=== PATIENT | female | born 1945 | race Caucasian/White ===

== ENCOUNTER → 2016-04-11 | Outpatient (CLI) | payer MEDICARE ==
--- NOTE | 2016-04-14 09:21 | MM ---
Reason for exam: screening (asymptomatic). Last mammogram was performed 1 year and 1 month ago. History: Patient is postmenopausal. Benign right mammotome panel of the right breast, January 04, 2013. Took hormonal contraceptives for 1 year. Took estrogen for 3 years. Physical Findings: A clinical breast exam by your physician is recommended on an annual basis and results should be correlated with mammographic findings. MG 3D Screening Mammo W/Cad Bilateral CC and MLO view(s) were taken. Prior study comparison: February 28, 2015, bilateral MG screening mammo w CAD. January 25, 2014, bilateral MG screening mammo w CAD. The breast tissue is almost entirely fat. Benign calcifications. No significant changes when compared with prior studies. ASSESSMENT: Benign, BI-RAD 2 RECOMMENDATION: Routine screening mammogram of both breasts in 1 year.
== END | disposition home or self-care (01) ==
LOC: RADMAMWWP 12:46
PROVIDERS: ATTEND Surgery
DX: Z12.31 Encounter for screening mammogram for malignant neoplasm of breast (principal)
CPT/HCPCS: 77063; G0202

== ENCOUNTER → 2017-06-05 | Outpatient (CLI) | payer MEDICARE ==
--- NOTE | 2017-06-08 11:00 | MM ---
Reason for exam: screening (asymptomatic). Last mammogram was performed 1 year and 2 months ago. History: Patient is postmenopausal and history of other cancer. Benign right mammotome panel of the right breast, January 04, 2013. Took hormonal contraceptives for 1 year. Took estrogen for 3 years. Physical Findings: A clinical breast exam by your physician is recommended on an annual basis and results should be correlated with mammographic findings. MG 3D Screening Mammo W/Cad Bilateral CC and MLO view(s) were taken. Prior study comparison: April 11, 2016, bilateral MG 3d screening mammo w/cad. February 28, 2015, bilateral MG screening mammo w CAD. There are scattered fibroglandular densities. Finding: There are typically benign calcifications in both breasts. No suspicious abnormality. Right biopsy marker noted. ASSESSMENT: Benign, BI-RAD 2 RECOMMENDATION: Routine screening mammogram of both breasts in 1 year.
== END | disposition home or self-care (01) ==
LOC: RADMAMWWP 11:10
PROVIDERS: ATTEND Family Medicine
DX: Z12.31 Encounter for screening mammogram for malignant neoplasm of breast (principal)
CPT/HCPCS: 77063; 77067

== ENCOUNTER → 2018-06-30 | Outpatient (CLI) | payer MEDICARE ==
--- NOTE | 2018-07-02 08:25 | MM ---
Reason for exam: screening (asymptomatic). Last mammogram was performed 1 year and 1 month ago. History: Patient is postmenopausal and history of other cancer. Benign right mammotome panel of the right breast, January 04, 2013. Took hormonal contraceptives for 1 year. Took estrogen for 3 years. Physical Findings: A clinical breast exam by your physician is recommended on an annual basis and results should be correlated with mammographic findings. MG 3D Screening Mammo W/Cad Bilateral CC and MLO view(s) were taken. Prior study comparison: June 05, 2017, bilateral MG 3d screening mammo w/cad. April 11, 2016, bilateral MG 3d screening mammo w/cad. The breast tissue is almost entirely fat. No significant changes when compared with prior studies. ASSESSMENT: Negative, BI-RAD 1 RECOMMENDATION: Routine screening mammogram of both breasts in 1 year.
== END | disposition home or self-care (01) ==
LOC: RADMAMWWP 12:51
PROVIDERS: ATTEND Family Medicine
DX: Z12.31 Encounter for screening mammogram for malignant neoplasm of breast (principal)
CPT/HCPCS: 77063; 77067

== ENCOUNTER → 2019-01-27 | Outpatient (CLI) | payer MEDICARE ==
--- NOTE | 2019-01-27 14:29 | CT ---
EXAMINATION TYPE: CT abdomen pelvis wo con DATE OF EXAM: 01/27/2019 COMPARISON: 03/03/2013 HISTORY: 73-year-old female history of renal stones and hydronephrosis CT DLP: 1223.2 mGycm. Automated exposure control for dose reduction was used. TECHNIQUE: Contiguous axial scanning of the abdomen and pelvis without IV contrast. Coronal and sagit pamela reconstructions performed. FINDINGS: Heart upper limits of normal in size without pericardial effusion. Suggestion of mild emphysematous c hange in the visualized lower lungs with strandy atelectasis. Generalized breathing motion artifact degrading the exam. Lack of contrast further limits assessment. Liver borderline enlarged at 17.7 cm. There may be mild fatty infiltration. Cholecystectomy clips. Adrenal glands, spleen, and pancreas show no gross abnormality by noncontrast CT. Bilateral parapelvic cysts are redemonstrated measuring up to 3.2 cm on the left. Lack of IV contrast limits further assessment. No dilated ureter is seen. No nephrolithiasis. Mild central hiro mesentery and some borderline sized mesenteric lymph nodes measuring up to 8 mm ar e stable back to 2012 suggesting chronic postinflammatory etiology. No dilated small bowel, free fluid, or free air. Mild to moderate stool. Mild diverticulosis of the sigmoid colon. No pericolonic inflammatory change. Bladder partially distended. Uterus appears absent. Stable slight thickening along the right lateral margin of the vaginal cuff as compared to 2013 suggesting a benign etiology. No abnormal fluid collec tion the pelvis or pelvic lymphadenopathy. Neither ovary is clearly visualized. Bones: Osteitis pubis. Mild degenerative change of the hips. Moderately advanced degenerative disc di sease throughout the visualized spine along with hypertrophic facet arthropathy. IMPRESSION: 1. Redemonstrated multiple bilateral renal parapelvic cysts measuring up to 3.2 cm. 2. No nephrolithiasis. Further assessment of the kidneys and collecting systems is limited due to lac k of contrast. No dilated ureter is seen. 3. Borderline hepatomegaly at 17.7 cm. Stable mild central hiro mesentery and a few scattered border line sized mesenteric lymph nodes suggesting a chronic postinflammatory etiology. 4. Very mild sigmoid diverticulosis.
== END | disposition home or self-care (01) ==
LOC: RADCTMAIN 12:35
PROVIDERS: ATTEND Urology
DX: N28.1 Cyst of kidney, acquired (principal); R16.0 Hepatomegaly, not elsewhere classified; K57.30 Diverticulosis of large intestine without perforation or abscess without bleeding
CPT/HCPCS: 74176

== ENCOUNTER → 2019-12-23 | Day surgery (SDC) | payer MEDICARE ==
[2019-12-01 10:23] VITALS: BMI 36.0
[~2019-12-23] MED LIST: LACTATED RINGERS 1,000 ML IV SCH; LIDOCAINE 1% (10MG/ML) FOR IV START INTRADERMA ONE; PROPOFOL 10 MG/ML 20 ML VIAL IV ONE
[2019-12-23 10:33] VITALS: TEMP 97
[2019-12-23 11:03] VITALS: RESP 16
[2019-12-23 11:23] VITALS: BP 110/69; PULSE 59
--- NOTE | 2019-12-23 11:28 | P.PCN ---
Date of Procedure: 12/23/19 Procedure(s) Performed: BRIEF HISTORY: Patient is a 74-year-old pleasant white female scheduled for an elective colonoscopy as a part of screening for colorectal neoplasia. Her mother was diagnosed with colon cancer at age 75. PROCEDURE PERFORMED: Colonoscopy. PREOPERATIVE DIAGNOSIS: Screening for colon cancer/family history of colon cancer. IV sedation per Anesthesia. PROCEDURE: After informed consent was obtained, the patient, was brought into the endoscopy unit. IV sedation was administered by Anesthesia under continuous monitoring. Digital rectal examination was normal. Initially the Olympus CF-160 flexible video colonoscope was then inserted in the rectum, gradually advanced into the cecum without any difficulty. Careful examination was performed as the scope was gradually being withdrawn. Ileocecal valve and the appendiceal orifice were visualized and appeared normal. Prep was excellent. Mucosa of the cecum, ascending colon, transverse colon, descending colon, sigmoid colon, and rectum appeared normal. Scattered sigmoidal diverticulosis Retroflexion was performed in the rectum and no lesions were seen. The patient tolerated the procedure well. IMPRESSION: Normal-appearing colon from rectum to cecum with no evidence of colorectal neoplasia Scattered sigmoid diverticulosis seen. RECOMMENDATIONS: Findings of this examination were discussed with the patient as well as a family. She was advised to have a repeat screening colonoscopy in 5 years based the family history of colon cancer..
== END ==
LOC: ORWHC2ENDO 09:33
PROVIDERS: ATTEND Internal Medicine
DX: Z12.11 Encounter for screening for malignant neoplasm of colon (principal); K57.30 Diverticulosis of large intestine without perforation or abscess without bleeding; E78.5 Hyperlipidemia, unspecified; I49.9 Cardiac arrhythmia, unspecified; Z96.659 Presence of unspecified artificial knee joint; Z88.0 Allergy status to penicillin; Z91.012 Allergy to eggs; Z79.899 Other long term (current) drug therapy; Z80.0 Family history of malignant neoplasm of digestive organs
CPT/HCPCS: J2704; G0105

== ENCOUNTER → 2020-01-17 | Outpatient (CLI) | payer MEDICARE ==
--- NOTE | 2020-01-18 13:25 | MM ---
Reason for exam: screening (asymptomatic). Last mammogram was performed 1 year and 7 months ago. History: Patient is postmenopausal and history of other cancer. Benign right mammotome panel of the right breast, January 04, 2013. Took hormonal contraceptives for 1 year. Took estrogen for 3 years. Physical Findings: A clinical breast exam by your physician is recommended on an annual basis and results should be correlated with mammographic findings. MG 3D Screening Mammo W/Cad Bilateral CC and MLO view(s) were taken. Prior study comparison: June 30, 2018, bilateral MG 3d screening mammo w/cad. June 05, 2017, bilateral MG 3d screening mammo w/cad. The breast tissue is almost entirely fat. Previous mammotome biopsy in the right breast. No significant changes when compared with prior studies. ASSESSMENT: Negative, BI-RAD 1 RECOMMENDATION: Routine screening mammogram of both breasts in 1 year.
== END | disposition home or self-care (01) ==
LOC: RADMAMWWP 16:10
PROVIDERS: ATTEND Family Medicine
DX: Z12.31 Encounter for screening mammogram for malignant neoplasm of breast (principal)
CPT/HCPCS: 77063; 77067

== ENCOUNTER → 2021-06-18 | Outpatient (CLI) | payer MEDICARE ==
--- NOTE | 2021-06-20 10:53 | MM ---
Reason for exam: screening (asymptomatic). Last mammogram was performed 1 year and 5 months ago. History: Patient is postmenopausal and history of other cancer. Benign right mammotome panel of the right breast, January 04, 2013. Took hormonal contraceptives for 1 year. Took estrogen for 3 years. Physical Findings: A clinical breast exam by your physician is recommended on an annual basis and results should be correlated with mammographic findings. MG 3D Screening Mammo W/Cad Bilateral CC and MLO view(s) were taken. Prior study comparison: January 17, 2020, bilateral MG 3d screening mammo w/cad. June 30, 2018, bilateral MG 3d screening mammo w/cad. There are scattered fibroglandular densities. No significant changes when compared with prior studies. ASSESSMENT: Benign, BI-RAD 2 RECOMMENDATION: Routine screening mammogram of both breasts in 1 year.
== END | disposition home or self-care (01) ==
LOC: RADMAMWWP 12:54
PROVIDERS: ATTEND Family Medicine
DX: Z12.31 Encounter for screening mammogram for malignant neoplasm of breast (principal)
CPT/HCPCS: 77063; 77067

== ENCOUNTER → 2021-11-29 | Outpatient (CLI) | payer MEDICARE ==
--- NOTE | 2021-11-29 15:24 | US ---
EXAMINATION TYPE: US venous doppler duplex LE BI DATE OF EXAM: 11/29/2021 3:09 PM COMPARISON: NONE CLINICAL HISTORY: R79.1 ABN COAGULATION PROFILE. Abnormal Ddimer. Covid x 2 weeks ago. No swelling. Patient states left lateral calf warmth. SIDE PERFORMED: Bilateral TECHNIQUE: The lower extremity deep venous system is examined utilizing real time linear array sonog disha with graded compression, doppler sonography and color-flow sonography. Additionally the left pl eural catheter in the patient's region of warmth was evaluated. VESSELS IMAGED: Common Femoral Vein Deep Femoral Vein Greater Saphenous Vein * Femoral Vein Popliteal Vein Small Saphenous Vein * Proximal Calf Veins (* superficial vessels) Grayscale, color doppler, spectral doppler imaging performed of the deep veins of the lower extremiti es. There is normal flow, compressibility, vascular waveforms. Right Leg: Negative for DVT Left Leg: Negative for DVT. Area of concern scanned- No abnormality seen. IMPRESSION: No ultrasound evidence of deep venous thrombosis of the bilateral lower extremities.
== END | disposition home or self-care (01) ==
LOC: RADUSWWP 14:40
PROVIDERS: ATTEND Family Medicine
DX: R79.1 Abnormal coagulation profile (principal)
CPT/HCPCS: 93970

== ENCOUNTER → 2021-12-16 | Outpatient (CLI) | payer MEDICARE | END | disposition home or self-care (01) | LOC: LABPAT 15:29 | PROVIDERS: ATTEND Orthopaedic Surgery | DX: Z22.322 Carrier or suspected carrier of Methicillin resistant Staphylococcus aureus (principal); M19.011 Primary osteoarthritis, right shoulder | CPT/HCPCS: 87070 ==

== ENCOUNTER 2021-12-24 05:38 | Inpatient (IN) | payer MEDICARE ==
--- NOTE | 2021-12-23 09:06 | P.HPOR ---
History of Present Illness H&P Date: 12/23/21 Chief Complaint: Right shoulder pain The patient's a 76-year-old retired [id number] female who presents with progressive right shoulder pain for the past several years worsening recently. She's having pain with any attempted overhead use and at night. She can't take anti-inflammatories because of renal disease. Review of Systems As per HPI Past Medical History Past Medical History: Osteoarthritis (OA) Additional Past Medical History / Comment(s): states irregular heart beat, occasional IBS, skin cancer, states scab on leg from scrape., and recent skin spot on her back that was removed with scab in place., severe tinnitus. History of renal disease. History of Any Multi-Drug Resistant Organisms: None Reported Past Surgical History: Cholecystectomy, Hysterectomy, Tonsillectomy Additional Past Surgical History / Comment(s): Total knee arthroplasty Past Anesthesia/Blood Transfusion Reactions: No Reported Reaction Past Psychological History: No Psychological Hx Reported Smoking Status: Never smoker Past Alcohol Use History: Rare Past Drug Use History: None Reported - Past Family History Mother Family Medical History: Cancer Additional Family Medical History / Comment(s): colon cancer Medications and Allergies Home Medications Medication Instructions Recorded Confirmed Type Aspirin 81 mg PO DAILY 09/01/14 12/01/19 History Cholecalciferol [Vitamin D3] 1,000 unit PO DAILY@1200 09/01/14 12/01/19 History Atorvastatin [Lipitor] 10 mg PO HS 12/01/19 12/01/19 History Escitalopram [Lexapro] 10 mg PO DAILY 12/01/19 12/01/19 History Meclizine [Antivert] 25 mg PO BID 12/01/19 12/01/19 History Metoprolol Tartrate [Lopressor] 25 mg PO DAILY 12/01/19 12/01/19 History Ubidecarenone [Co Q-10] 100 mg PO DAILY 12/01/19 12/01/19 History Allergies Allergy/AdvReac Type Severity Reaction Status Date / Time Penicillins Allergy Rash/Hives Verified 12/20/19 15:56 egg AdvReac Unknown Diarrhea, Verified 12/20/19 15:56 Abd Pain Physical Examination - Shoulder right Appearance: swelling Tenderness with palpation: anterior Pain: with forward flexion ROM: forward flexion: 100 degrees ROM: internal rotation: lower lumbar ROM: external rotation: 40 degrees Strength: abduction: 4/5 Strength: extension: 5/5 Tests: internal impingement tests: positive Results The patient is a well-developed well-nourished female proximally 5 foot 7, 230 pounds of endomorphic habitus. HEENT exam is nonfocal, neck is supple. On examination the right shoulder she is tender about the anterior glenohumeral joint. She has moderate crepitus. Impingement test, Neer test, and speed tests are positive. Her distal neurovascular appears intact in the right upper extremity. - Diagnostic results Shoulder x-ray: image reviewed (3 views of the right shoulder obtaining the office show severe glenohumeral joint space narrowing with cystic changes inv olving the greater tuberosity.) Assessment and Plan Assessment: Right severe glenohumeral joint osteoarthrosis/possible rotator cuff tear History of renal disease Plan: I talked to the patient with regarding her condition along with treatment options. At this point she is quite limited because of pain despite previous conservative measures. After thorough discussion she opted to proceed with surgery. We'll plan to proceed with right total shoulder arthroplasty versus a reverse total shoulder arthroplasty depending on the integrity of her rotator cuff. Risks and benefits were discussed at length in layman's terms. Time with Patient: Less than 30
[2021-12-23 09:19] VITALS: BMI 39.1
[~2021-12-24 05:38] MED LIST changes: +ACETAMINOPHEN TAB 500 MG TAB PO PRN; -LACTATED RINGERS 1,000 ML IV SCH; -LIDOCAINE 1% (10MG/ML) FOR IV START INTRADERMA ONE; +MELOXICAM 7.5 MG TAB PO PRN; -PROPOFOL 10 MG/ML 20 ML VIAL IV ONE; +TRANEXAMIC ACID IN NACL,ISO-OS 1,000 MG in SALINE 1 100ML.BAG IVPB PRN
[2021-12-24] MEDS ORDERED: DEXAMETHASONE SOD PHOSPHATE 4 MG/ML 1 ML VIAL IV ONE (05:41)
[2021-12-24] MEDS ORDERED: ONDANSETRON 4 MG/2 ML VIAL IVP ONE (05:41)
[2021-12-24] MEDS: LACTATED RINGERS 1,000 ML IV SCH (06:30)
[2021-12-24] MEDS ORDERED: MIDAZOLAM 2 MG/2 ML VIAL IVP ONE (06:35)
--- NOTE | 2021-12-24 06:50 | P.ANPRN ---
Procedure Note - Anesthesia - Nerve Block Performed Right Interscalene Single Time Out Performed: Yes ([id number]) Date of Procedure: 12/24/21 Procedure Start Time: 06:40 Procedure Stop Time: 06:45 Location of Patient: PreOp Indication: Acute Post-Operative Pain, Requested by Surgeon Sedation Type: Sedate with meaningful contact maintained Preparation: Sterile Prep, Sterile Dressing Position: Sitting Catheter: None Needle Types: Pajunk Needle Gauge: Other (see comment) (22G-50 mm) Ultrasound used to visualize needle placement: Yes Ultrasound used to observe medication spread: Yes Injectate: 0.5% Ropivacaine (see comment for volume) (20 ml of 0.5% Ropivacaine mixed with 4 mg of dexamethasone) Blood Aspirated: No Pain Paresthesia on Injection Noted: No Resistance on Injection: Normal Image Stored and Saved: Yes Events: Uneventful and Well Tolerated
[2021-12-24] MEDS ORDERED: ePHEDrine 50 MG/ML 1 ML VIAL ONE (06:55)
[2021-12-24] MEDS ORDERED: PROPOFOL 10 MG/ML 20 ML VIAL IV ONE (06:55)
[2021-12-24] MEDS ORDERED: GLYCOPYRROLATE 0.2 MG/ML 2 ML VIAL ONE (06:55)
[2021-12-24] MEDS ORDERED: diphenhydrAMINE 50 MG/ML 1 ML VIAL ONE (06:55)
[2021-12-24] MEDS ORDERED: NEOSTIGMINE 1 MG/ML 10 ML VIAL ONE (06:55)
[2021-12-24] MEDS ORDERED: ROCURONIUM 10 MG/ML (5 ML VIAL) IV ONE (06:55)
[2021-12-24] MEDS ORDERED: DEXAMETHASONE SOD PHOSPHATE 4 MG/ML 1 ML VIAL ONE (06:55)
[2021-12-24] MEDS ORDERED: fentaNYL (PF) 50 MCG/ML 2 ML AMP ONE (06:55)
[2021-12-24] MEDS ORDERED: LIDOCAINE 2% INJ 20 MG/ML (2 ML VIAL) ONE (06:55)
[2021-12-24] MEDS ORDERED: SUCCINYLCHOLINE CHLORIDE 200 MG/10 ML VIAL IV ONE (06:55)
[2021-12-24] MEDS ORDERED: TRANEXAMIC ACID IN NACL,ISO-OS 1,000 MG/100 ML BAG ONE (06:55)
[2021-12-24] MEDS ORDERED: ROPIVACAINE 5 MG/ML 30 ML VIAL ONE (06:55)
[2021-12-24] MEDS ORDERED: HYDROmorphone 0.5 MG/0.5 ML SYRINGE IVP PRN ×2 (07:00→09:00)
[2021-12-24] MEDS ORDERED: ONDANSETRON 4 MG/2 ML VIAL IVP PRN (09:00)
[2021-12-24] MEDS ORDERED: HYDROcodone/APAP 7.5-325MG 1 EACH TAB PO PRN (09:03)
--- NOTE | 2021-12-24 09:21 | P.OP ---
Date of Procedure: 12/24/21 Preoperative Diagnosis: Severe right glenohumeral joint osteoarthrosis Postoperative Diagnosis: Same Procedure(s) Performed: Right total shoulder arthroplasty Implants: [employer] size 12 humeral body, size 10 humeral stem, 44 mm cemented peg glenoid component, 44 x 21 eccentric humeral head. Anesthesia: [facility] Surgeon: Ankur Calle [employer] Machinist #1: Steven Tabor Estimated Blood Loss (ml): 200 Pathology: other (Humeral head) Condition: stable Disposition: PACU Indications for Procedure: The patient's a 76-year-old female who presents with progressive right shoulder pain secondary to osteoarthrosis despite conservative measures. A discussion of the risks and benefits of operative intervention versus continued conservative measures was made with patient. She opted to proceed with surgery. Operative risks to include infection, neurovascular injury, fracture, instability, possible component loosening/failure need for subscap procedures was discussed. Informed consent was obtained. Operative Findings: As below Description of Procedure: The patient was brought to the operating room, and after induction of general anesthesia was placed in the beachchair position. The bony prominences were appropriately padded. The right upper extremity was prepped and draped in normal fashion. A deltopectoral incision was then made lateral to the coracoid process extending approximately 12 cm. The skin was incised sharply. Subcutaneous tissues were divided bluntly. Electrocautery was used for hemostasis. The deltopectoral interval was identified and the cephalic vein gently retracted laterally with the deltoid. Subdeltoid adhesions were bluntly dissected. A self-retaining retractor was placed. The clavipectoral fascia was opened and the conjoined tendon gently retracted medially. The upper one third of the pectoralis major was released to help facilitate exposure. The biceps was identified and the sheath was opened. The rotator interval was opened. The biceps was tenotomized and allowed to retract distally. A subscapularis peeled was performed. The humeral head was then exposed releasing the capsule off the humeral neck. The shoulder was gently dislocated. A starting hole was made in the head in line with the humeral shaft. The shaft was reamed by hand up to 10 mm. There is good distal chatter. The cutting guide was placed planning on 8 cut flush with the rotator cuff insertion and 30 of retroversion. The cutting block was pinned in place. The humeral head cut was then made. This measured most appropriately at 44 x 21 mm. Residual inferior osteophytes were carefully removed flush with the lower sioux cortical bone. A posterior glenoid retractor was placed. The glenoid was then exposed releasing the labrum from the 12 to 6 o'clock position. Residual labral tissue was removed. The glenoid sized most appropriate 44 mm. A guidewire was then inserted planning on the appropriate version. The glenoid was reamed down to a bleeding bony surface. The central pedicle was drilled. The alignment guide was placed in the peripheral peg holes drilled. The trial size 44 mm glenoid was placed and was fully seated. There was good anterior to posterior and inferior to superior fit. The trial component was removed. Pulsatile lavage was utilized. The bony surface was dried. The peripheral peg holes were then pressurized with cement utilizing a syringe. Excess cement was removed. A central peg glenoid was then placed and was fully seated. This was gently impacted. This was held in place until the c ement had sufficiently hardened. Attention was then paid again towards preparing the proximal humerus. The appropriate broach with a size 12 body was placed in 30 of retroversion and was fully seated. An eccentric 44 x 21 mm humeral head was placed. The shoulder was gently reduced. It was taken through a range of motion. It was felt to be stable in flexion and extension with internal and external rotation. I felt there was adequate hindu of soft tissue tension. The shoulder was gently dislocated. The trial components were then removed. A #2 Ethibond was placed laterally for reattachment of the lesser tuberosity. The humeral stem was inserted in 30 of retroversion and was fully seated. There was good rotational stability. The eccentric 44 x 21 mm humeral head was gently impacted. The shoulder was then gently reduced and taken through range of motion and was felt to be stable. Pulsatile lavage was utilized. The subscapularis was reattached utilizing #2 Ethibond suture. The rotator interval was closed with #2 Ethibond suture. She had minimal drainage at this point therefore a deep drain was not placed. The deltopectoral interval was closed with interrupted 2-0 Vicryl sutures. The subcu tissues were reapproximated with interrupted 2-0 Vicryl sutures. The skin was reprepped with 3-0 subcuticular Prolene suture. Steri-Strips were applied. A sterile dressing was applied in addition to a sling. The patient was then awoken from general anesthesia and transferred to recovery room in good condition. Blood loss was estimated at 200 mL. No complications were incurred. Sponge and needle counts were correct at the end the case. Pedro HARRIS assisted during the major components the case to include positioning, exposure, resection, implantation, and closure.
--- NOTE | 2021-12-24 10:38 | XR ---
EXAMINATION TYPE: XR shoulder limited RT DATE OF EXAM: 12/24/2021 9:43 AM INDICATION: Patient age:Female; 76 years old; Reason for study: s/p right total shoulder arthroplasty; COMPARISON: Shoulder radiograph 10/21/2021 TECHNIQUE: The right shoulder was examined in AP, internally rotated and scapular Y projections. . FINDINGS: RIGHT shoulder arthroplasty changes with hardware in appropriate position. No evidence of fracture. S ubcutaneous and intra-articular lucencies consistent with recent surgery. This is first suggested melissa ssly unremarkable. Mild multilevel disc degeneration changes throughout the spine. Hypertrophy of the acromioclavicular joint. IMPRESSION: 1. Post right shoulder arthroplasty changes with hardware in place and intact. No evidence fracture. 2. Mild right acromioclavicular joint osteoarthritis.
[2021-12-24 12:57] VITALS: RESP 18
[2021-12-24 13:14] LABS: Basophils % (A) 0 %; Eosinophils % (A) 0 %; HGB 13.5 gm/dL (11.4-16.0); Lymphocytes # (A) 0.6 k/uL (1.0-4.8); Lymphocytes % (A) 4 %; MCH 30.4 pg (25.0-35.0); MCHC 33.8 g/dL (31.0-37.0); MCV 89.9 fL (80.0-100.0); Mean Platelet Volume 7.9; Monocytes # (A) 0.5 k/uL (0-1.0); Monocytes % (A) 3 %; Neutrophils # (A) 13.9 k/uL (1.3-7.7); Neutrophils % (A) 93 %; Platelet Count 176 k/uL (150-450); RBC 4.45 m/uL (3.80-5.40); RDW 12.8 % (11.5-15.5)
[2021-12-24] MEDS ORDERED: ALPRAZolam 0.25 MG TAB PO PRN (17:08)
[2021-12-24] MEDS: HYDROcodone/APAP 5-325MG 1 EACH TAB PO PRN (18:12)
--- NOTE | 2021-12-24 20:15 | P.CONS ---
History of Present Illness - Reason for Consult Consult date: 12/24/21 Medical management Requesting physician: Ankur Calle - Chief Complaint Right shoulder surgery - History of Present Illness This is a very pleasant 76-year-old patient who follows with Dr. Dr. Carrion. Chronic stable medical conditions include prostatitis, CK D stage III, IBS, GERD, chronic tinnitus. Patient underwent total arthroplasty of the right shoulder. Postprocedure hand is numb no nausea vomiting. No chest pain or shortness breath. Patient's son and daughter the bedside. Sitting up in a chair. Patient has long-standing tinnitus Review of systems: GEN.: None EYES: None HEENT: Chronic tinnitus NECK: None RESPIRATORY: None CARDIOVASCULAR: None GASTROINTESTINAL: [GERD GENITOURINARY: None MUSCULOSKELETAL: Joint pains LYMPHATICS: None HEMATOLOGICAL: None PSYCHIATRY: None NEUROLOGICAL: None Past medical history to include: Osteoarthritis, CK D stage III, COVID November 2021, IBS, severe tinnitus, Social history: Patient became a bit ON June 2021. No smoking. Alcohol rarely. Physical examination: VITAL SIGNS: 97.5, 70, 18, 131/75, 94% on room air GENERAL: BMI 39.7, sitting up in a chair recliner awake comfortable. EYES: Pupils equal. Conjunctiva normal. HEENT: External appearance of nose and ears normal, oral cavity grossly normal. NECK: JVD not raised; masses not palpable. HEART: First and second heart sounds are normal; no edema. LUNGS: Respiratory rate normal; clear to auscultation. ABDOMEN: Soft, nontender, liver spleen not palpable, no masses palpable. PSYCH: Alert and oriented x3; mood and affect normal. MUSCULOSKELETAL:No Clubbing/cyanosis;muscles-grossly intact. Evidence of OA. NEUROLOGICAL: Cranial nerves grossly intact; no facial asymmetry, power and sensation grossly intact. LYMPHATICS: No lymph nodes palpable in the axilla and neck INVESTIGATIONS, reviewed in the clinical context: White count 15 hemoglobin 13.5 platelets 176 Assessment plan: -Right total shoulder arthroplasty Pain control -Primary osteoarthritis Pain control as needed -CK D stage III possibly nephrosclerosis Current labs not available. To follow-up outpatient. -Chronic tinnitus Told the patient to follow-up with ENT -GERD Prilosec -Essential hypertension Lopressor -Anxiety depression Lexapro, Xanax when necessary Resume home medications. MARRY stockings. Pain control. Care was discussed with the patient family the bedside. Questions answered. Thank you Dr. Calle Past Medical History Past Medical History: Osteoarthritis (OA), Renal Disease Additional Past Medical History / Comment(s): had covid infection 11-15-21 w/ elevated d dimer-followed with Dr Main,states hx irregular heart beat, occasional IBS, skin precancer, severe tinnitus. Stg 3 renal disease. History of Any Multi-Drug Resistant Organisms: None Reported Past Surgical History: Breast Surgery, Cholecystectomy, Hysterectomy, Joint Replacement, Tonsillectomy Additional Past Surgical History / Comment(s): Total rt knee arthroplasty,breast bx Past Anesthesia/Blood Transfusion Reactions: No Reported Reaction Additional Past Anesthesia/Blood Transfusion Reaction / Comm: no hx blood transfusion Smoking Status: Never smoker - Past Family History Mother Family Medical History: Cancer Additional Family Medical History / Comment(s): colon cancer Medications and Allergies Home Medications Medication Instructions Recorded Confirmed Type Aspirin 81 mg PO HS 09/01/14 12/24/21 History Cholecalciferol [Vitamin D3] 25 mcg PO DAILY 09/01/14 12/24/21 History Escitalopram [Lexapro] 10 mg PO HS 12/01/19 12/24/21 History Meclizine [Antivert] 25 mg PO BID 12/01/19 12/24/21 History Metoprolol Tartrate [Lopressor] 25 mg PO HS 12/01/19 12/24/21 History ALPRAZolam [Xanax] 0.0625 mg PO HS PRN 12/23/21 12/24/21 History Ascorbic Acid [Vitamin C] 500 mg PO DAILY 12/23/21 12/24/21 History Omeprazole [PriLOSEC] 20 mg PO QAM 12/23/21 12/24/21 History Zinc Citrate [Zinc] 30 mg PO DAILY 12/23/21 12/24/21 History Allergies Allergy/AdvReac Type Severity Reaction Status Date / Time Penicillins Allergy Rash/Hives-not Verified 12/24/21 06:14 sure if it was penicillin egg AdvReac Unknown Diarrhea, Verified 12/24/21 06:14 Abd Pain Physical Exam Vitals: Vital Signs Temp Pulse Pulse Resp BP Pulse Ox 12/24/21 12:56 97.5 F L 70 18 131/75 94 L 12/24/21 12:32 67 16 116/59 98 12/24/21 12:15 58 L 16 114/58 98 12/24/21 12:01 57 L 16 120/58 98 12/24/21 11:31 58 L 16 122/61 98 12/24/21 11:15 57 L 16 122/60 98 12/24/21 11:00 56 L 16 120/57 98 12/24/21 10:45 56 L 16 119/56 98 12/24/21 10:30 56 L 16 122/60 98 12/24/21 10:17 56 L 16 137/61 98 12/24/21 10:00 58 L 16 133/58 98 12/24/21 09:46 56 L 16 133/65 98 12/24/21 09:30 59 L 16 145/65 98 12/24/21 09:18 97 F L 57 L 16 162/72 98 12/24/21 06:50 48 L 16 132/77 95 12/24/21 06:12 97.7 F 53 L 18 142/65 96 Intake and Output 12/24/21 12/24/21 12/24/21 06:59 14:59 22:59 Intake Total 300 50 Output Total 200 Balance 300 -150 Intake: IV 300 50 Output: Estimated Blood Loss 200 Other: Weight 115 kg Results CBC & Chem 7: 12/24/21 12:53 Labs: Abnormal Lab Results - Last 24 Hours (Table) 12/24/21 Range/Units 12:53 WBC 15.0 H (3.8-10.6) k/uL Neutrophils # 13.9 H (1.3-7.7) k/uL Lymphocytes # 0.6 L (1.0-4.8) k/uL
[2021-12-24] MEDS ORDERED: ESCITALOPRAM 10 MG TAB PO SCH (21:00)
[2021-12-24] MEDS ORDERED: METOPROLOL TARTRATE 25 MG TAB PO SCH (21:00)
[2021-12-25] MEDS ORDERED: PANTOPRAZOLE 40 MG TABLET PO SCH (07:30)
[2021-12-25] MEDS: LACTATED RINGERS 1,000 ML IV SCH (07:47)
[2021-12-25] MEDS: HYDROcodone/APAP 5-325MG 1 EACH TAB PO PRN (08:00)
[2021-12-25] MEDS ORDERED: CHOLECALCIFEROL 25 MCG (1000 IU) TABLET PO SCH (09:00)
[2021-12-25] MEDS ORDERED: ASPIRIN 325 MG TAB PO SCH (09:00)
[2021-12-25] MEDS ORDERED: ASCORBIC ACID 500 MG TAB PO SCH (09:00)
--- NOTE | 2021-12-25 11:04 | P.PN ---
Subjective Progress Note Date: 12/25/21 Principal diagnosis: Severe right glenohumeral joint osteoarthrosis Patient was seen at bedside this morning sitting up in chair resting comfortably with sling to right upper extremity. Dressing is present on right shoulder at this time patient is currently icing shoulder. Patient says she has urinated since surgery yesterday. Patient says she has been up walking around the room with sling to right upper extremity. Patient says she is looking forward to going home. Patient denies chest pain, fever, shortness of breath, nausea, vomiting, change in vision, loss of bowel/bladder control. Objective - Vital Signs Vital signs: Vital Signs Temp 98.2 F 12/25/21 02:05 Pulse 53 L 12/25/21 02:05 Resp 18 12/25/21 08:30 BP 105/62 12/25/21 02:05 Pulse Ox 94 L 12/25/21 02:05 FiO2 Intake & Output 12/24/21 12/25/21 12/25/21 18:59 06:59 18:59 Intake Total 50 400 200 Output Total 200 Balance -150 400 200 Intake: IV 50 Intake, IV Titration 100 Amount ceFAZolin 2 gm In Sodium 100 Chloride 0.9% 50 ml @ 100 mls/hr IVPB Q8HR [facility] Rx# :[id number] Oral 300 200 Output: Estimated Blood Loss 200 Other: Voiding Method Toilet Toilet # Voids 2 - Exam Right shoulder: Incision is clean, dry, and intact. Swelling present throughout right upper extremity. The bulky dressing is in good condition. There is minimal soft tissue swelling and ecchymosis surrounding the medial and lateral aspects of the incision. Calf is soft, no tenderness with palpation. Plantar flexion, dorsiflexion, EHL, FHL are intact. Sensory exam to light touch throughout the extremity is intact, dorsal pedis pulses 2+. Patient does have good range of motion and right wrist flexion/extension and and digits. Patient does have some numbness and tingling down the right upper extremity. - Labs CBC & Chem 7: 12/24/21 12:53 Labs: Abnormal Lab Results - Last 24 Hours (Table) 12/24/21 Range/Units 12:53 WBC 15.0 H (3.8-10.6) k/uL Neutrophils # 13.9 H (1.3-7.7) k/uL Lymphocytes # 0.6 L (1.0-4.8) k/uL Assessment and Plan Assessment: 1. Severe right glenohumeral joint osteoarthrosis - Postoperative day 1 status post right total shoulder arthroplasty Plan: 1. Severe right glenohumeral joint osteoarthrosis - right total shoulder arthroplasty performed yesterday, 12/24/2021. Patient stable at bedside this morning was lying on right upper extremity. Discharge home today. 2. Appreciate medical management 3. Pain management - [place] 4. DVT prophylaxis - aspirin 325 mg daily 5. GI prophylaxis - Colace 6. PT/OT - nonweightbearing right upper extremity. Maintain right upper extremity in sling at all times. 7. Discharge planning - discharge home today Time with Patient: Less than 30
--- NOTE | 2021-12-25 11:09 | P.DS ---
Providers Date of admission: 12/24/21 05:38 Expected date of discharge: 12/25/21 Attending physician: Ankur Calle Consults: 12/24/21 09:00 Consult Physician Routine Consulting Provider: Ben Ortiz Consult Reason/Comments: medical management Do you want consulting provider notified?: Yes Primary care physician: [facility] Course: Date of admission: 12/24/2021 Date of discharge: 12/25/2021 Admission diagnosis: Severe right glenohumeral joint osteoarthrosis Discharge diagnosis: Same Attending physician: Dr. Calle Surgical procedures: Right total shoulder arthroplasty Brief history: Patient is a 76-year-old female with a history of Severe right glenohumeral joint osteoarthrosis. At this point patient has failed conservative treatment measures and has opted to proceed with a elective right total shoulder arthroplasty. Hospital course: Details of patient's surgery can be found in operative report. Patient tolerated the procedure well and was subsequently transported to orthopedic floor. Patient's orthopeidc and medical care was provided daily. Patient had daily laboratory tests performed for evaluation of overall blood counts. Patient had daily physical therapy to include strengthening range of motion as well as education with walker ambulation. Patient was treated with aspirin for their postoperative DVT prophylaxis during their inpatient stay. Patient was noted to have a relatively uneventful postoperative course. Patient reported satisfactory pain control with oral pain medications by postoperative day 1. Patient showed satisfactory progress with physical therapy. Patient moved steadily through the program and had no difficulty meeting the goals by postoperative day 1. Given patient's otherwise satisfactory course and having met physical therapy goals, plan is to discharge patient home on postoperative day 1. Discharge condition/disposition: Patient will be discharged home in stable condition. Discharge medications: Instructions are given on resumption of patient's normal daily medications per primary care recommendation, in addition patient will be prescribed [place]; aspirin 325 mg daily 3 weeks; Colace. Discharge instructions: 1. Wound care and infection precautions, keep incision dry and covered while showering, no lotions, creams, moisturizers. No soaking, tubs, pools, hottubs. Do not scrub over the incision. 2. Remain nonweightbearing right upper extremity. Keep right upper extremity and single times. May remove to shower 3. Ice when necessary. Do not exceed 20 minutes per hour with ice pack. 4. Pain meds and anticoagulants per prescription. 5. Pain medication has potential to cause constipation. Increase oral fluid and fiber intake. Contact primary care provider if you have not had a bowel movement within 48 hours after discharge 6. No anti-inflammatory medication until discussed at first post operative visit, this including Motrin, Aleve, Mobic, Diclofenac, Aspirin. 7. Follow up in office at 2 weeks postop with Pedro Tabor PA-C / Neil James PA-C 8. Follow up with your primary care doctor 7-10 days after discharge. 9. Contact [facility] with any questions, . Assessment: Severe right glenohumeral joint osteoarthrosis Procedures: right total shoulder arthroplasty Patient Condition at Discharge: Good Plan - Discharge Summary Discharge Rx Participant: No New Discharge Prescriptions: New Aspirin 325 mg PO DAILY #21 tab HYDROcodone/APAP 5-325MG [[place] 5-325] 1 tab PO Q6HR PRN #28 tab PRN Reason: Pain Docusate [Colace] 100 mg PO DAILY #30 capsule Continue Cholecalciferol [Vitamin D3 (25 Mcg = 1000 Iu)] 25 mcg PO DAILY Aspirin 81 mg PO HS Meclizine [Antivert] 25 mg PO BID Escitalopram [Lexapro] 10 mg PO HS Metoprolol Tartrate [Lopressor] 25 mg PO HS ALPRAZolam [Xanax] 0.0625 mg PO HS PRN PRN Reason: Anxiety Ascorbic Acid [Vitamin C] 500 mg PO DAILY Omeprazole [PriLOSEC] 20 mg PO QAM Zinc Citrate [Zinc] 30 mg PO DAILY Discharge Medication List Aspirin 81 mg PO HS 09/01/14 [History] Cholecalciferol [Vitamin D3 (25 Mcg = 1000 Iu)] 25 mcg PO DAILY 09/01/14 [History] Escitalopram [Lexapro] 10 mg PO HS 12/01/19 [History] Meclizine [Antivert] 25 mg PO BID 12/01/19 [History] Metoprolol Tartrate [Lopressor] 25 mg PO HS 12/01/19 [History] ALPRAZolam [Xanax] 0.0625 mg PO HS PRN 12/23/21 [History] Ascorbic Acid [Vitamin C] 500 mg PO DAILY 12/23/21 [History] Omeprazole [PriLOSEC] 20 mg PO QAM 12/23/21 [History] Zinc Citrate [Zinc] 30 mg PO DAILY 12/23/21 [History] Aspirin 325 mg PO DAILY #21 tab 12/25/21 [Rx] Docusate [Colace] 100 mg PO DAILY #30 capsule 12/25/21 [Rx] HYDROcodone/APAP 5-325MG [[place] 5-325] 1 tab PO Q6HR PRN #28 tab 12/25/21 [Rx] Follow up Appointment(s)/Referral(s): Neil James PAC [PHYSICIAN [employer]ING [employer]] - 01/10/22 1:50 pm Praveen Carrion DO [Primary Care Provider] - 1 Week Activity/Diet/Wound Care/Special Instructions: Orthopedic discharge instructions: 1. Utilize arm sling 2. Basic pendular exercises daily 3. Ice and elevate shoulder 4. Keep incision covered and dry while showering 5. Plan [facility] at [facility] 2 weeks Discharge Disposition: HOME SELF-CARE
[2021-12-25 11:23] VITALS: BP 125/68; PULSE 62; TEMP 98.3
--- NOTE | 2021-12-25 12:06 | P.PN ---
Progress Note - Text Progress Note Date: 12/25/21 - Chief Complaint Right shoulder surgery Hospital course This is a very pleasant 76-year-old patient who follows with Dr. Dr. Carrion. Chronic stable medical conditions include prostatitis, CK D stage III, IBS, GERD, chronic tinnitus. Patient underwent total arthroplasty of the right shoulder. Postprocedure hand is numb no nausea vomiting. No chest pain or shortness breath. Patient's son and daughter the bedside. Sitting up in a chair. Patient has long-standing tinnitus 12/25/2021: Sitting up in a chair. Pain control. Did eat some breakfast. Looking forward to go home. Questions answered. Active Medications Hydrocodone Bitart/Acetaminophen (Hydrocodone/Apap 5-325mg 1 Each Tab) 1 each PO Q6HR PRN PRN Reason: Pain Scale 1 to 5 Last Admin: 12/25/21 08:00 Dose: 1 each Hydrocodone Bitart/Acetaminophen (Hydrocodone/Apap 7.5-325mg 1 Each Tab) 1 each PO Q6HR PRN PRN Reason: SEVERE Pain Alprazolam (Alprazolam 0.25 Mg Tab) 0.0625 mg PO HS PRN PRN Reason: Anxiety Last Admin: 12/24/21 20:22 Dose: 0.0625 mg Ascorbic Acid (Ascorbic Acid 500 Mg Tab) 500 mg PO DAILY [facility] Last Admin: 12/25/21 08:00 Dose: 500 mg Aspirin (Aspirin 325 Mg Tab) 325 mg PO DAILY [facility] Last Admin: 12/25/21 08:00 Dose: 325 mg Cholecalciferol (Cholecalciferol 25 Mcg (1000 Iu) Tablet) 25 mcg PO DAILY [facility] Last Admin: 12/25/21 08:00 Dose: 25 mcg Escitalopram Oxalate (Escitalopram 10 Mg Tab) 10 mg PO HS [facility] Last Admin: 12/24/21 20:23 Dose: 10 mg Hydromorphone HCl (Hydromorphone 0.5 Mg/0.5 Ml Syringe) 0.5 mg IVP Q3HR PRN PRN Reason: Pain Scale 7 to 10 Lactated Ringer's (Lactated Ringers) 1,000 mls @ 20 mls/hr IV .Q24H [facility] Last Admin: 12/25/21 07:47 Dose: Not Given Metoprolol Tartrate (Metoprolol Tartrate 25 Mg Tab) 25 mg PO HS [facility] Last Admin: 12/24/21 20:28 Dose: 25 mg Ondansetron HCl (Ondansetron 4 Mg/2 Ml Vial) 4 mg IVP DAILY PRN PRN Reason: Nausea And Vomiting Pantoprazole Sodium (Pantoprazole 40 Mg Tablet) 40 mg PO QAM@0730 [facility] Last Admin: 12/25/21 08:00 Dose: 40 mg Past medical history to include: Osteoarthritis, CK D stage III, COVID November 2021, IBS, severe tinnitus, Social history: Patient became a bit ON June 2021. No smoking. Alcohol rarely. Physical examination: VITAL SIGNS: 98.3, 62, 14, 1 25 x 68, 94% room air GENERAL: sitting up in a chair recliner awake comfortable. EYES: Pupils equal. Conjunctiva normal. HEENT: External appearance of nose and ears normal, oral cavity grossly normal. NECK: JVD not raised; masses not palpable. HEART: First and second heart sounds are normal; no edema. LUNGS: Respiratory rate normal; clear to auscultation. ABDOMEN: Soft, nontender, liver spleen not palpable, no masses palpable. PSYCH: Alert and oriented x3; mood and affect normal. MUSCULOSKELETAL:No Clubbing/cyanosis;muscles-grossly intact. Evidence of OA. INVESTIGATIONS, reviewed in the clinical context: White count 15 hemoglobin 13.5 platelets 176 Assessment plan: -Right total shoulder arthroplasty Pain control -Primary osteoarthritis Pain control as needed -CK D stage III possibly nephrosclerosis Current labs not available. To follow-up outpatient. -Chronic tinnitus Told the patient to follow-up with ENT -GERD Prilosec -Essential hypertension Lopressor -Anxiety depression Lexapro, Xanax when necessary Continue current meds. Follow up with Dr. Carrion upon discharge. Questions answered. Thank you Dr. Calle
== END 2021-12-25 12:48 | disposition home or self-care (01) | DRG 483 ==
LOC: 2ORMAIN 05:38 → 4SSUR 12:27
PROVIDERS: ADMIT Orthopaedic Surgery; ATTEND Orthopaedic Surgery
PROC: 0RRJ0JZ Replacement of Right Shoulder Joint with Synthetic Substitute, Open Approach (ICD-10-PCS; principal; 2021-12-24 07:00)
DX: M19.011 Primary osteoarthritis, right shoulder (principal); I12.9 Hypertensive chronic kidney disease with stage 1 through stage 4 chronic kidney disease, or unspecified chronic kidney disease; F41.8 Other specified anxiety disorders; K21.9 Gastro-esophageal reflux disease without esophagitis; K58.9 Irritable bowel syndrome, unspecified; H93.19 Tinnitus, unspecified ear; N18.30 Chronic kidney disease, stage 3 unspecified; M24.811 Other specific joint derangements of right shoulder, not elsewhere classified; Z96.651 Presence of right artificial knee joint; Z28.310 Unvaccinated for COVID-19; Z86.16 Personal history of COVID-19; Z79.899 Other long term (current) drug therapy; Z79.82 Long term (current) use of aspirin; Z88.0 Allergy status to penicillin; Z91.012 Allergy to eggs
CPT/HCPCS: 64415; 76942; 85025; 88305; 88311

== ENCOUNTER → 2022-05-23 | Outpatient (CLI) | payer MEDICARE ==
--- NOTE | 2022-05-23 14:38 | CT ---
EXAMINATION TYPE: CT abdomen pelvis wo con DATE OF EXAM: 05/23/2022 COMPARISON: 01/27/2019 HISTORY: hydronephrosis CT DLP: 1237 mGycm Automated exposure control for dose reduction was used. TECHNIQUE: Helical acquisition of images was performed from the lung bases through the pelvis. FINDINGS: The lung bases are clear. The patient is status post cholecystectomy. There are no renal calcifications. There is no organomegaly involving the solid visceral organs. There are marked parapelvic cysts of both kidneys. The caliber the abdominal aorta is normal. Bowel loops are normal caliber obstruction. No free intraperitoneal air or fluid. As demonstrated on the first borderline lymph nodes in the mesentery with hazy mesenteric density unc hanged compared to previous. There is no pelvic mass or adenopathy. There are surgical absence of the uterus The osseous structures are intact. IMPRESSION: 1. No renal calcifications or hydronephrosis. There are marked parapelvic cysts of both kidneys. Sta ble compared to previous 2. Chronic mesenteric changes as described above, stable compared to previous. 3. Post cholecystectomy and hysterectomy.
== END | disposition home or self-care (01) ==
LOC: RADCTMAIN 13:02
PROVIDERS: ATTEND Urology
DX: N13.30 Unspecified hydronephrosis (principal); Z90.710 Acquired absence of both cervix and uterus; Z90.49 Acquired absence of other specified parts of digestive tract
CPT/HCPCS: 74176

== ENCOUNTER → 2022-12-18 | Outpatient (CLI) | payer MEDICARE ==
--- NOTE | 2022-12-18 14:43 | P.SLEEP ---
History of Present Illness DATE: 12/18/2022 CONSULTATION/NEW PATIENT EVALUATION HISTORY OF PRESENT ILLNESS/SLEEP-WAKE EVALUATION: 77-year-old lady had been evaluated in the sleep center for possible obstructive sleep apnea hypopnea syndrome, episodes of nightmares. SLEEP SCHEDULE: Usually sleep schedule from 11 PM to 7:30 AM 7 days a week. FALLING ASLEEP: Sometimes patient may have difficulties with falling asleep, although no TV in bedroom. DURING SLEEP: Patient sleeps on the back position with snoring and awakenings from sleep 3 times with dry mouth, palpitation, sleep talking, nightmares and nocturia. No history of hypnogogical hallucinations, sleep paralysis, or cataplexy. DURING THE DAY/WAKE STATE: During the day patient may have difficulties to concentrate. [place] sleepiness scale is 6. Patient may take nap at 3 PM. PAST MEDICAL HISTORY: Pulmonary hypertension, paroxysmal supraventricular tachycardia, possible sick sinus syndrome, chronic kidney disease stage III, hyperlipidemia, prediabetes,. PAST SURGICAL HISTORY: Hysterectomy, cholecystectomy, shoulder surgery, melanoma treatment. MEDICATIONS: Metoprolol 25 mg half of the tablet once a day, Lexapro 10 mg half of the tablet once a day, meclizine 25 mg once a day, atorvastatin 20 mg once a day, Xanax 0.125 mg half of the tablet as necessary, aspirin 81 mg once a day, Zyrtec as needed. SOCIAL HISTORY: Negative for smoking, alcohol consumption occasional. FAMILY HISTORY: Heart problems, arthritis, COPD, cancer, diabetes, depression. REVIEW OF SYSTEMS: Snoring, multiple awakenings from sleep. No fevers. No double vision. No recent chest pain. No shortness of breath. No abdominal pain. No bleeding episodes. No blood in urine. No seizure episodes. PHYSICAL EXAMINATION: GENERAL: A pleasant patient without any distress. VITAL SIGNS: BP 131/71 , HR 57 , RR 18 , weight 243.4 pounds, height 5 foot 5-1/3 inches, body mass index 40.0 . HEENT: PERRLA, EOMI. Evaluation of oropharynx showed tongue protrudes midline, low position of soft palate Mallampati 4. NECK: Supple. No JVD. Thyroid is not palpable. 15-3/4 inches in circumference. LUNGS: Clear to percussion and to auscultation. Good air exchange. No wheezing or rhonchi. HEART: S1, S2 regular. No murmurs, gallops or rubs. ABDOMEN: Soft and nontender. Bowel sounds are present. No organomegaly appreciated. EXTREMITIES: No clubbing or cyanosis. NURSING EXECUTIVE: Awake, alert, and oriented x3. Cranial nerves 2 to 7 intact. There is no fasciculation or atrophy noted. No focal deficits observed. ASSESSMENT: 1. Snoring, multiple awakenings from sleep, extremely low position of soft palate Mallampati 4. Obstructive sleep apnea hypopnea syndrome. 2. Obesity, body mass index 40.0. 3. History of cardiac arrhythmia including paroxysmal supraventricular tachycardia and possible sick sinus syndrome. 4. Pulmonary hypertension. 5 chronic kidney disease stage III. 6 . PreDiabetes. 7. Hyperlipidemia. 8. Status post surgical treatment for melanoma. 9 . Status post hysterectomy. 10. Status post cholecystectomy. 11. Status post right knee replacement. 12. Status post right shoulder replacement. PLAN: 1. Polysomnography for evaluation of patient's breathing during sleep. 2. Following plan after reading sleep study 3. Preferable position during sleep on the side. 4. No driving if patient feels any sleepiness. Patient is aware of civil and criminal liability for unsafe driving. 5. Sleep hygiene with regular sleep time for at least 7.5-8 hours. 6. Watching and losing weight. Thank you very much for referring this patient for consultation. Sincerely, Elijah Sheikh MD, PhD, FAASM. Diplomat of [place] [employer], Sleep Medicine Board by [place] [employer] [place] [employer] [facility] [place] Past Medical History Past Medical History: Osteoarthritis (OA) Additional Past Medical History / Comment(s): states irregular heart beat, occasional IBS, skin cancer, states scab on leg from scrape., and recent skin spot on her back that was removed with scab in place., severe tinnitus. History of Any Multi-Drug Resistant Organisms: None Reported Past Surgical History: Cholecystectomy, Hysterectomy, Tonsillectomy Additional Past Surgical History / Comment(s): Total rt knee arthroplasty,breast bx Past Anesthesia/Blood Transfusion Reactions: No Reported Reaction Additional Past Anesthesia/Blood Transfusion Reaction / Comment(s): no hx blood transfusion Past Psychological History: No Psychological Hx Reported - Past Family History Mother Family Medical History: Cancer Additional Family Medical History / Comment(s): colon cancer Medications and Allergies Home Medications Medication Instructions Recorded Confirmed Type Aspirin 81 mg PO HS 09/01/14 12/24/21 History Cholecalciferol [Vitamin D3 (25 25 mcg PO DAILY 09/01/14 12/24/21 History Mcg = 1000 Iu)] Escitalopram [Lexapro] 10 mg PO HS 12/01/19 12/24/21 History Meclizine [Antivert] 25 mg PO BID 12/01/19 12/24/21 History Metoprolol Tartrate [Lopressor] 25 mg PO HS 12/01/19 12/24/21 History ALPRAZolam [Xanax] 0.0625 mg PO HS PRN 12/23/21 12/24/21 History Ascorbic Acid [Vitamin C] 500 mg PO DAILY 12/23/21 12/24/21 History Omeprazole [PriLOSEC] 20 mg PO QAM 12/23/21 12/24/21 History Zinc Citrate [Zinc] 30 mg PO DAILY 12/23/21 12/24/21 History Aspirin 325 mg PO DAILY #21 tab 12/25/21 Rx Docusate [Colace] 100 mg PO DAILY #30 capsule 12/25/21 Rx HYDROcodone/APAP 5-325MG [[place] 1 tab PO Q6HR PRN #28 tab 12/25/21 Rx 5-325] Allergies Allergy/AdvReac Type Severity Reaction Status Date / Time Penicillins Allergy Rash/Hives-not Verified 12/24/21 06:14 sure if it was penicillin egg AdvReac Unknown Diarrhea, Verified 12/24/21 06:14 Abd Pain Sleep Note - Sleep Note Sleep Note: Temperature: Pulse Rate: Respiratory Rate: Blood Pressure: SpO2: Height: Weight: BMI: Neck Circumference:
== END ==
LOC: 3 N SLEEP 13:46
PROVIDERS: ATTEND Internal Medicine
DX: G47.33 Obstructive sleep apnea (adult) (pediatric) (principal); E66.9 Obesity, unspecified; R73.03 Prediabetes; I12.9 Hypertensive chronic kidney disease with stage 1 through stage 4 chronic kidney disease, or unspecified chronic kidney disease; N18.30 Chronic kidney disease, stage 3 unspecified; E78.5 Hyperlipidemia, unspecified; Z68.41 Body mass index [BMI] 40.0-44.9, adult; Z98.890 Other specified postprocedural states; Z90.710 Acquired absence of both cervix and uterus; Z96.651 Presence of right artificial knee joint; Z96.611 Presence of right artificial shoulder joint; Z90.49 Acquired absence of other specified parts of digestive tract; Z85.820 Personal history of malignant melanoma of skin; Z79.899 Other long term (current) drug therapy; Z91.012 Allergy to eggs; Z88.0 Allergy status to penicillin
CPT/HCPCS: 99211

== ENCOUNTER 2023-02-02 19:41 | Outpatient (CLI) | payer MEDICARE ==
--- NOTE | 2023-02-04 10:56 | P.PCN ---
Description of Procedure: POLYSOMNOGRAPHY REPORT PROCEDURE(S)/DATE(S): Polysomnography 02/02/2023 CLINICAL: Patient has been seen in the sleep center for evaluation of obstructive sleep apnea-hypopnea syndrome. Please see my consultation. Sleep study has been done for evaluation of patient breathing during the sleep. PROCEDURE: The standard montage for clinical polysomnography included the electroencephalogram, the electrooculogram, the mentalis surface electromyography and Lead II cardiography. The respiratory battery consisted of measurements of nasal/buccal air flow, pressure transducer measurements from nose, thoracic and/or abdominal effort and intercostal surface electromyography. Video monitoring has been done to check for any parasomnia events. Nocturnal oxyhemoglobin saturations were obtained by finger oximetry. Step-lowery titration with positive airway pressure was utilized to control the respiratory events, if necessary. RESULTS: During the diagnostic sleep study sleep efficiency was normal 92.6 %. Latency to sleep onset was normal 10.5 min. Sleep architecture showed stage NI was slightly decreased to 4.8 %, Delta sleep was was extremely short 1.4 %, REM sleep was also extremely short 8.6 %. Respiratory channel showed 21 obstructive apneas, 0 mixed apneas, 0 central ap neas, 19 hypopneas with lowest oxygen level 89 %. Total apnea hypopnea index was 6.5. Heart rate was in the range between 46 and 49, average 47. EMG showed 10.8 periodic limb movements per hour with 0.7 micro-arousals per hour. IMPRESSIONS: 1. Obstructive sleep apnea hypopnea syndrome in mild range. Patient presents with symptoms of multiple awakenings from sleep. 2. Leg intrusions have been documented during REM sleep, may indicate possibility of REM sleep behavior disorder. Few periodic limb movements have been documented. 3. Loud snoring have been documented. 4. Bradycardia. 5. History of SVT. Please see other impressions from consultation PLAN: 1. The patient will have AutoPAP treatment for correction of respiratory abnormalities during the sleep. 2. Losing weight program. 3. Sleep hygiene with regular time in bed for at least 7-1/2 hours. 4. No driving if feeling sleepiness. 5. Please check iron profile including ferritin level. Low level of iron may increase the risk for periodic limb movements. Thank you very much for allowing me to participate in the management of your patient. Sincerely, Elijah Sheikh MD, PhD, FAASM. Diplomat of [employer], Sleep Medicine Board by [employer] [employer] Techn[employer] [facility] [place]
== END 2023-02-03 07:45 | disposition home or self-care (01) ==
LOC: 3 N SLEEP 19:41
PROVIDERS: ATTEND Internal Medicine
DX: G47.33 Obstructive sleep apnea (adult) (pediatric) (principal); G47.61 Periodic limb movement disorder; R00.1 Bradycardia, unspecified; Z86.79 Personal history of other diseases of the circulatory system; Z88.0 Allergy status to penicillin; Z91.012 Allergy to eggs; Z79.82 Long term (current) use of aspirin
CPT/HCPCS: 95810

== ENCOUNTER 2023-07-07 13:40 | Day surgery (SDC) | payer MEDICARE ==
[~2023-07-07 13:40] MED LIST changes: -ACETAMINOPHEN TAB 500 MG TAB PO PRN; -MELOXICAM 7.5 MG TAB PO PRN; +SODIUM CHLORIDE 0.9% 1,000 ML IV SCH; -TRANEXAMIC ACID IN NACL,ISO-OS 1,000 MG in SALINE 1 100ML.BAG IVPB PRN
[2023-07-07 14:04] VITALS: BP 163/77; PULSE 86; RESP 16; TEMP 97.8
[2023-07-07] MEDS: SODIUM CHLORIDE 0.9% 500 ML 500 ML IV ONE (14:22)
[2023-07-07] MEDS: CLINDAMYCIN 900 MG in DEXTROSE 5% IN WATER 50 ML IVPB PRN (14:26)
[2023-07-07] MEDS ORDERED: LIDOCAINE 1% INJ 10MG/ML (20 ML MDV) ONE (14:35)
[2023-07-07] MEDS: LIDOCAINE 1% INJ 10MG/ML (20 ML MDV) SQ ONE (14:57)
--- NOTE | 2023-07-07 15:08 | P.EPPROC ---
- EP Procedure Note Electrophysiology Procedure Note: Loop monitor implant Primary physicians: Dr. Carrion Office Machine Service Supervisor: Dr. Rivero Indication: Sick sinus syndrome/nonsustained SVT Patient was brought to the EP lab in a fasting state. Written informed consent was obtained prior to the procedure. The left pectoral area was prepped and draped per protocol. Intravenous antibiotic was administered preoperatively. A subcutaneous Loop monitor was implanted successfully and the wound was closed per protocol. The device was programmed to detect significant dean- arrhythmic and tachy-arrhythmic events, per protocol. Device and programming details: Sick sinus syndrome
== END 2023-07-07 15:33 | disposition home or self-care (01) ==
LOC: CATHEP 13:40
PROVIDERS: ATTEND Internal Medicine Clinical Cardiac Electrophysiology
DX: I47.10 Supraventricular tachycardia, unspecified (principal); I49.5 Sick sinus syndrome; E66.9 Obesity, unspecified; Z68.39 Body mass index [BMI] 39.0-39.9, adult; Z82.49 Family history of ischemic heart disease and other diseases of the circulatory system; Z79.899 Other long term (current) drug therapy
CPT/HCPCS: 33285; C1764; J2001; J0736

== ENCOUNTER → 2023-10-14 | Outpatient (CLI) | payer MEDICARE ==
--- NOTE | 2023-11-10 13:27 | US ---
Site ID [facility] Patient Rosalina Ward K ID [id number] Age/Gender: 77Y, F Order # N/A Procedure US carotid duplex BILAT Date 10/14/2023 1:34:00 PM EXAMINATION TYPE: US carotid duplex BILAT DATE OF EXAM: 11/01/2023 COMPARISON: NONE CLINICAL INDICATION: Female, 77 year old with history of carotid tinnitus. TECHNIQUE: Carotid duplex ultrasound examination. Indirect Doppler criteria was utilized. FINDINGS: EXAM MEASUREMENTS: RIGHT: Peak Systolic Velocity (PSV) cm/sec ----- Right CCA: 63 ----- Right ICA: 77 ----- Right ECA: 85 ICA/CCA ratio: 1.2 RIGHT: End Diastole cm/sec ----- Right CCA: 13 ----- Right ICA: 13 ----- Right ECA: 9 LEFT: Peak Systolic Velocity (PSV) cm/sec ----- Left CCA: 83 ----- Left ICA: 77 ----- Left ECA: 65 ICA/CCA ratio: 0.9 LEFT: End Diastole cm/sec ----- Left CCA: 17 ----- Left ICA: 25 ----- Left ECA: 10 VERTEBRALS (direction of flow): Right Vertebral: Antegrade Left Vertebral: Antegrade STRINGING MACHINE OPERATOR NOTES: No elevated velocities or significant stenosis. IMPRESSION: No ultrasound evidence for hemodynamically significant stenosis of the bilateral visualized carotid a rterial systems. Criteria for Assigning % of Stenosis / Diameter reduction (Estimation based on the indirect measurements of the internal carotid artery velocities (ICA PSV). 1. Normal (no stenosis)=ICA PSV < 125 cm/s: ratio < 2.0: ICA EDV<40 cm/s. 2. Less than 50% stenosis=ICA PSV < 125 cm/s: ratio < 2.0: ICA EDV<40 cm/s. 3. 50 to 69% stenosis=ICA PSV of 125 to 230 cm/s: ration 2.0 ? 4.0: ICA EDV 40-100 cm/s. 4. Greater than 70% stenosis to near occlusion= ICA PSV > 230 cm/s: ratio > 4.0: ICA EDV > 100 cm/s. 5. Near occlusion= ICA PSV velocities may be low or undetectable: variable ratio and ICA EDV. 6. Total occlusion=unable to detect flow.
== END | disposition home or self-care (01) ==
LOC: RADUSWWP 12:00
PROVIDERS: ATTEND Family Medicine
DX: H93.19 Tinnitus, unspecified ear (principal)
CPT/HCPCS: 93880

== ENCOUNTER → 2024-02-17 | Outpatient (CLI) | payer MEDICARE ==
--- NOTE | 2024-02-21 05:09 | MM ---
Reason for Exam: Screening (asymptomatic). Last mammogram was performed 1 year(s) and 2 month(s) ago. Patient History: Menarche at age 15. First Full-Term at age 21. Left ovary removed at age 64. Right ovary removed at age 64. Hysterectomy at age 64. Postmenopausal. Other cancer. Patient used Estrogen for 3 years. Patient used Hormonal Contraceptives for 1 year. 01/04/2013, Benign Core Biopsy on the right side. Risk Values: Pema 5 year model risk: 1.5%. NCI Lifetime model risk: 3.1%. Prior Study Comparison: 01/17/2020 Bilateral Screening Mammogram, [facility]. 06/18/2021 Bilateral Screening Mammogram, [facility]. 12/17/2022 Bilateral MG 3D screening mammo w/cad, [facility]. Tissue Density: The breasts are almost entirely fatty. Findings: Analyzed By CAD. The pattern is symmetrical. No significant interval change No suspicious groups of microcalcifications, spiculated or lobular masses, architectural distortion or other secondary signs of malignancy are mammographically apparent. Overall Assessment: Benign, BI-RAD 2 Management: Screening Mammogram of both breasts in 1 year. A negative mammogram report should not preclude additional follow up of suspicious palpable abnormalities. Patient should continue monthly self breast exam. A clinical breast exam by your physician is recommended on an annual basis and results should be correlated with mammographic findings. Note on Pema scores and lifetime risk: 1. A Pema score greater than 3% is considered moderate risk. If this is the case, consider specialist referral to assess eligibility for a risk reducing agent. 2. If overall lifetime risk for the development of breast cancer is 20% or higher, the patient may qualify for future screening with alternating mammogram and breast MRI. [facility], , 02/21/2024 5:06 AM. Electronically signed and approved by: Praveen Herr D.O. Radiologis
== END | disposition home or self-care (01) ==
LOC: RADMAMWWP 12:05
PROVIDERS: ATTEND Family Medicine
DX: Z12.31 Encounter for screening mammogram for malignant neoplasm of breast (principal); Z78.0 Asymptomatic menopausal state; Z92.0 Personal history of contraception; Z90.722 Acquired absence of ovaries, bilateral
CPT/HCPCS: 77063; 77067

== ENCOUNTER 2024-03-15 05:45 | Day surgery (SDC) | payer MEDICARE ==
--- NOTE | 2024-03-06 08:42 | P.HPOR ---
History of Present Illness H&P Date: 03/06/24 Chief Complaint: Left shoulder pain The patient is a 78-year-old [id number] retired female who presents with progressive left shoulder pain for the past year worsening over the past 6 months. She is having pain with any attempted overhead use and at night. She has tried medications, exercises, and activity modifications without much relief. She notes daily pain that limits her. Review of Systems Per HPI Past Medical History Past Medical History: Cancer, Hearing Disorder / Deafness, Hyperlipidemia, Osteoarthritis (OA), Supraventricular Tachycardia (SVT) Additional Past Medical History / Comment(s): SEE Dr. Rivero's H&P. Pt states irregular heart beat, occasional IBS, skin pre-cancer, severe tinnitus. History of Any Multi-Drug Resistant Organisms: None Reported Past Surgical History: Breast Surgery, Cholecystectomy, Hysterectomy, Joint Replacement, Tonsillectomy Additional Past Surgical History / Comment(s): Total rt knee arthroplasty, total R shoulder, breast bx Past Anesthesia/Blood Transfusion Reactions: No Reported Reaction Additional Past Anesthesia/Blood Transfusion Reaction / Comment(s): no hx blood transfusion Smoking Status: Never smoker - Past Family History Mother Family Medical History: Cancer Additional Family Medical History / Comment(s): colon cancer Medications and Allergies Home Medications Medication Instructions Recorded Confirmed Type Aspirin 81 mg PO HS 09/01/14 07/07/23 History Escitalopram [Lexapro] 10 mg PO HS 12/01/19 07/07/23 History Meclizine [Antivert] 25 mg PO QAM 12/01/19 07/07/23 History Metoprolol Tartrate [Lopressor] 12.5 mg PO HS 12/01/19 07/07/23 History ALPRAZolam [Xanax] 0.0625 mg PO HS PRN 12/23/21 07/03/23 History Acetaminophen Tab [Tylenol] 500 mg PO Q6H PRN 07/03/23 07/07/23 History Atorvastatin [Lipitor] 20 mg PO HS 07/03/23 07/03/23 History Multivitamins, Thera [Multivitamin 1 tab PO DAILY 07/03/23 07/07/23 History (formulary)] Allergies Allergy/AdvReac Type Severity Reaction Status Date / Time Penicillins Allergy Rash/Hives-not Verified 07/03/23 10:48 sure if it was penicillin egg AdvReac Unknown Diarrhea, Verified 07/03/23 10:48 Abd Pain Physical Examination - Shoulder left Tenderness with palpation: anterior, bicipital groove Pain: with abduction, with forward flexion ROM: forward flexion: 80 degrees ROM: internal rotation: 0 ROM: external rotation: 10 degrees Crepitus with motion: Yes Strength: abduction: 5/5 Strength: external rotation: 5/5 Tests: internal impingement tests: positive, external impingment tests: positive Results Patient is a well-developed well-nourished female approximately 5 foot 7, 230 pounds of endomorphic habitus. HEENT exam is nonfocal, neck is supple. She is tender about the left anterior glenohumeral joint. She has moderate crepitus. Active forward elevation 80 degrees, passive 90 degrees. Impingement test, Neer test, and Speed test are positive. Her distal neurovascular exam appears intact in the left upper extremity. - Diagnostic results Shoulder x-ray: image reviewed (3 views of the left shoulder obtained the office show severe glenohumeral joint space narrowing with cspk-by-[id number] changes and subchondral sclerosis. The humeral head to acromial distance appears to be maintained.) Assessment and Plan Assessment: Severe left glenohumeral joint osteoarthrosis Plan: I talked to the patient at length regarding her condition along with treatment options. At this point she is quite symptomatic having pain and stiffness related to her left glenohumeral joint osteoarthrosis despite conservative measures. After a thorough discussion she opts to proceed with surgery. We will plan to proceed with left total shoulder arthroplasty. Risks and benefits were discussed at length in layman's terms.
[2024-03-11 12:54] VITALS: BMI 37.5
[~2024-03-15 05:45] MED LIST changes: -SODIUM CHLORIDE 0.9% 1,000 ML IV SCH; +TRANEXAMIC 1,000 MG/100ML-NACL 1,000 MG in SALINE 1 100ML.BAG IVPB PRN
[2024-03-15] MEDS ORDERED: LIDOCAINE 1% (10MG/ML) FOR IV START INTRADERMA PRN (06:13)
[2024-03-15] MEDS: IV FLUID CONTINUATION 1,000 ML IV ONE (06:30)
[2024-03-15] MEDS: ACETAMINOPHEN TAB 500 MG TAB PO PRN (06:52)
[2024-03-15] MEDS: MELOXICAM 7.5 MG TAB PO PRN (06:52)
[2024-03-15] MEDS: ONDANSETRON 4 MG/2 ML VIAL IVP ONE (07:06)
[2024-03-15] MEDS: DEXAMETHASONE SOD PHOSPHATE 4 MG/ML 1 ML VIAL IV ONE (07:06)
[2024-03-15] MEDS: LACTATED RINGERS 1,000 ML IV SCH (07:06)
[2024-03-15] MEDS: MIDAZOLAM 2 MG/2 ML VIAL IVP ONE (07:10)
[2024-03-15] MEDS ORDERED: DEXAMETHASONE SOD PHOSPHATE 4 MG/ML 1 ML VIAL ONE (07:25)
[2024-03-15] MEDS ORDERED: LIDOCAINE 1% INJ 10MG/ML (20 ML MDV) ONE (07:25)
[2024-03-15] MEDS ORDERED: NEOSTIGMINE 1 MG/ML 10 ML VIAL ONE (07:25)
[2024-03-15] MEDS ORDERED: ROCURONIUM 10 MG/ML (5 ML VIAL) IV ONE (07:25)
[2024-03-15] MEDS ORDERED: GLYCOPYRROLATE 0.2 MG/ML 2 ML VIAL ONE (07:25)
[2024-03-15] MEDS ORDERED: SUCCINYLCHOLINE CHLORIDE 200 MG/10 ML VIAL IV ONE (07:25)
[2024-03-15] MEDS ORDERED: ROPIVACAINE 5 MG/ML 30 ML VIAL ONE (07:25)
[2024-03-15] MEDS ORDERED: fentaNYL (PF) 50 MCG/ML 2 ML AMP ONE (07:25)
[2024-03-15] MEDS ORDERED: MIDAZOLAM 2 MG/2 ML VIAL ONE (07:25)
[2024-03-15] MEDS ORDERED: ePHEDrine 50 MG/ML 1 ML VIAL ONE (07:25)
[2024-03-15] MEDS ORDERED: PROPOFOL 10 MG/ML 20 ML VIAL IV ONE (07:25)
[2024-03-15] MEDS: ceFAZolin 1,000 MG in SODIUM CHLORIDE 0.9% 1,000 ML IRRIGATION ONE (08:00)
[2024-03-15] MEDS: LACTATED RINGERS 1,000 ML IV ONE (09:13)
[2024-03-15] MEDS ORDERED: HYDROmorphone 0.5 MG/0.5 ML SYRINGE IVP PRN ×2 (09:17)
[2024-03-15] MEDS ORDERED: SENNOSIDES-DOCUSATE SODIUM 1 EACH TAB PO PRN (09:17)
[2024-03-15] MEDS ORDERED: HYDROcodone/APAP 5-325MG 1 EACH TAB PO PRN ×2 (09:17)
--- NOTE | 2024-03-15 09:38 | P.OP ---
Date of Procedure: 03/15/24 Preoperative Diagnosis: Severe left glenohumeral joint osteoarthrosis Postoperative Diagnosis: Same Procedure(s) Performed: Left total shoulder arthroplasty Implants: [employer] AP size 12 humeral body/size 12 humeral stem/44 x 18 eccentric humeral head/44 mm cemented central peg glenoid component. Anesthesia: morro SMITH Surgeon: Ankur Calle Machine Room Engineer #1: Neil James Estimated Blood Loss (ml): 100 Pathology: none sent Condition: stable Disposition: PACU Indications for Procedure: The patient is a 78-year-old female who presents with progressive left shoulder pain secondary to osteoarthrosis despite conservative measures. A discussion of the risks and benefits of operative intervention versus continued conservative measures was made with the patient. She opted to proceed with surgery. Operative risks include infection, neurovascular injury, development of blood clots, component loosening, component failure, and possible need for subsequent procedures was discussed. Informed consent was obtained. Operative Findings: As below Description of Procedure: The patient was brought to the operating room, and after induction of general anesthesia was placed in the beachchair position. The bony prominences were appropriately padded. The left upper extremity was prepped and draped in normal fashion. A deltopectoral incision was then made lateral to the coracoid process extending approximately 12 cm. The skin was incised sharply. Subcutaneous tissues were divided bluntly. Electrocautery was used for hemostasis. The deltopectoral interval was identified and the cephalic vein gently retracted laterally with the deltoid. Subdeltoid adhesions were bluntly dissected. A self-retaining retractor was placed. The clavipectoral fascia was opened and the conjoined tendon gently retracted medially. The upper one third of the pectoralis major was released to help facilitate exposure. The biceps was identified and the sheath was opened. The rotator interval was opened. The biceps was tenotomized and allowed to retract distally. A subscapularis peel was performed and this was tagged with #2 Ethibond suture. The humeral head was then exposed releasing the capsule off the humeral neck. The shoulder was gently dislocated. A starting hole was made in the head in line with the humeral shaft. The shaft was reamed by hand up to 12 mm. There is good distal chatter. The cutting guide was placed planning on 8 cut flush with the rotator cuff insertion and 30 of retroversion. The cutting block was pinned in place. The humeral head cut was then made. This measured most appropriately at 44 x 18 mm. Residual inferior osteophytes were carefully removed flush with the torres martinez cortical bone. A posterior glenoid retractor was placed. The glenoid was then exposed releasing the labrum from the 6-12 o'clock position. Residual labral tissue was removed. The glenoid sized most appropriate 44 mm. A guidewire was then inserted planning on the appropriate version. The glenoid was reamed down to a bleeding bony surface. The central pedicle was drilled. The alignment guide was placed in the peripheral peg holes drilled. The trial size 44 mm glenoid was placed and was fully seated. There was good anterior to posterior and inferior to superior fit. The trial component was removed. Pulsatile lavage was utilized. The bony surface was dried. The peripheral peg holes were then pressurized with cement utilizing a syringe. Excess cement was removed. A central peg glenoid was then placed and was fully seated. This was gently impacted. This was held in place until the cement had sufficiently hardened. Attention was then paid again towards preparing the proximal humerus. The appropriate broach was placed in 30 of retroversion and was fully seated. An eccentric 44 x 18 mm humeral head was placed. The shoulder was gently reduced. It was taken through a range of motion. It was felt to be stable in flexion and extension with internal and external rotation. I felt there was adequate zoroastrianism of soft tissue tension. The shoulder was gently dislocated. The trial components were then removed. A #2 Ethibond was placed laterally for reattachment of the lesser tuberosity. The humeral stem was inserted in 30 of retroversion and was fully seated. There was good rotational stability. The eccentric 44 x 18 mm humeral head was gently impacted. The shoulder was then gently reduced and taken through range of motion and was felt to be stable. Pulsatile lavage was utilized. The subscapularis was reattached utilizing #2 Ethibond suture. The rotator interval was closed with #2 Ethibond suture. She had minimal drainage at this point therefore a deep drain was not placed. The deltopectoral interval was closed with interrupted 2-0 Vicryl sutures. The subcu tissues were reapproximated with interrupted 2-0 Vicryl sutures. The skin was reprepped with 3-0 subcuticular Prolene suture. Steri-Strips were applied. A sterile dressing was applied in addition to a sling. The patient was then awoken from general anesthesia and transferred to recovery room in good condition. Blood loss was estimated at 100 mL. No complications were incurred. Sponge and needle counts were correct at the end the case. Neil HARRIS assisted during the major components the case to include positioning, exposure, resection, implantation, and closure.
--- NOTE | 2024-03-15 10:25 | XR ---
EXAMINATION TYPE: XR shoulder limited LT DATE OF EXAM: 03/15/2024 9:55 AM COMPARISON: Outside left shoulder x-ray January 15, 2024 CLINICAL INDICATION: Female, 78 years old with history of s/p left total shoulder arthroplasty, pain TECHNIQUE: Single portable view of the left shoulder is obtained. FINDINGS: There is metallic hardware at the left humeral head level. Hardware position satisfactory on frontal projection. Surrounding air from recent surgery noted. IMPRESSION: As above. [facility], , 03/15/2024 10:22 AM
[2024-03-15] MEDS: HYDROmorphone 0.5 MG/0.5 ML SYRINGE IVP PRN (13:10)
[2024-03-15] MEDS: droPERidol 5 MG/2 ML VIAL IVP ONE (14:35)
--- NOTE | 2024-03-15 17:52 | P.ANPRN ---
Procedure Note - Anesthesia - Nerve Block Performed Left Interscalene Single Time Out Performed: Yes (0710) Date of Procedure: 03/15/24 Location of Patient: PreOp Indication: Acute Post-Operative Pain, Analgesia, Dx/Pain Location (left shoulder), Requested by Surgeon Specifically requested for management of pain by DrJuanjose: Ankur Calle Sedation Type: Sedate with meaningful contact maintained Preparation: Sterile Prep Position: Supine Needle Types: Pajunk Needle Gauge: 21 Ultrasound used to visualize needle placement: Yes Ultrasound used to observe medication spread: Yes Injectate: 0.5% Ropivacaine (see comment for volume) (30 mL +4 mg of Decadron) Blood Aspirated: No Pain Paresthesia on Injection Noted: No Resistance on Injection: Normal Image Stored and Saved: Yes Events: Uneventful and Well Tolerated
[2024-03-15] MEDS: ATORVASTATIN 20 MG TAB PO SCH (20:35)
[2024-03-15] MEDS: ESCITALOPRAM 10 MG TAB PO SCH (20:35)
[2024-03-15] MEDS: MECLIZINE 12.5 MG TAB PO SCH (20:35)
[2024-03-15] MEDS: ALPRAZolam 0.25 MG TAB PO PRN (20:36)
[2024-03-15] MEDS: METOPROLOL TARTRATE 12.5 MG TAB PO SCH (20:36)
[2024-03-15] MEDS: hydrOXYzine pamoate 25 MG CAP PO PRN (23:57)
[2024-03-16 07:40] VITALS: BP 116/66; PULSE 56; RESP 16; TEMP 98.1
[2024-03-16] MEDS: ASPIRIN 325 MG TAB PO SCH (08:19)
[2024-03-16] MEDS ORDERED: METOPROLOL TARTRATE 25 MG TAB PO SCH (09:00)
--- NOTE | 2024-03-16 11:56 | P.PN ---
Subjective Progress Note Date: 03/16/24 Principal diagnosis: Status post left total shoulder arthroplasty Patient was evaluated today at bedside, she is resting in her hospital bed, the daughter was present at bedside. Patient has been urinating since surgery with no issues. She has been utilizing the arm sling. Her pain is well-controlled. She denies headaches, lightheadedness, chest pain or shortness of breath Objective - Vital Signs Vital signs: Vital Signs Temp 98.1 F 03/16/24 06:40 Pulse 56 L 03/16/24 06:40 Resp 16 03/16/24 06:40 BP 116/66 03/16/24 06:40 Pulse Ox 93 L 03/16/24 06:40 FiO2 Intake & Output 03/15/24 03/16/24 03/16/24 18:59 06:59 18:59 Intake Total 1751 200 Output Total 100 Balance 1651 200 Weight 113.9 kg Intake: IV 1751 Oral 200 Output: Urine 0 Estimated Blood Loss 100 Other: Voiding Method Toilet # Voids 1 5 # Bowel Movements 0 - Exam Left upper extremity: Postop dressing was removed, Steri-Strips and sutures in good position condition. There is some mild ecchymosis present to the extremity. Sensory exam to light touch is intact throughout the extremity. Radial and ulnar pulse are 2+. Assessment and Plan Assessment: Postoperative day #1 status post left total shoulder arthroplasty Plan: Pain control, plan for discharge home on [place] 5 mg / 325 mg, also prescribe stool softeners DVT prophylaxis, aspirin 325 mg daily for 2 weeks Wound care instructions discussed, this to include showering instructions Utilize arm sling, okay to take breaks as needed. Icing instructions were discussed Medical recommendations appreciated Discharge planning: Patient stable for discharge home today Time with Patient: Less than 30
[2024-03-16] MEDS: MULTIVITAMINS, THERA 1 EACH TAB PO SCH (12:00)
--- NOTE | 2024-03-16 12:01 | P.DS ---
Providers Date of admission: 03/15/2024 Expected date of discharge: 03/16/24 Attending physician: Ankur Calle Consults: 03/15/24 09:17 Consult Physician Routine Consulting Provider: Ben Ortiz Consult Reason/Comments: medical management s/p left total shoulder arthroplasty Do you want consulting provider notified?: Yes Primary care physician: [facility] Hospital Course: Date of admission: 03/15/2024 Date of discharge: 03/16/2024 Admission diagnosis: Status post left total shoulder arthroplasty Discharge diagnosis: Same Attending physician: Dr. Calle Surgical procedures: Left total shoulder arthroplasty Brief history: Patient is a 78-year-old female with a history of progressive primary left shoulder osteoarthritis. At this point patient has failed conservative treatment measures and has opted to proceed with a elective left total shoulder arthroplasty. Hospital course: Details of patient's surgery can be found in operative report. Patient tolerated the procedure well and was subsequently transported to orthopedic floor. Patient's orthopeidc and medical care was provided daily. Patient had daily laboratory tests performed for evaluation of overall blood counts. Patient had daily physical therapy to include strengthening range of motion as well as education with walker ambulation. Patient was treated with aspirin for their postoperative DVT prophylaxis during their inpatient stay. Patient was noted to have a relatively uneventful postoperative course. Patient reported satisfactory pain control with oral pain medications by postoperative day 0. Patient showed satisfactory progress with physical therapy. Patient moved steadily through the program and had no difficulty meeting the goals by postoperative day 1. Given patient's otherwise satisfactory course and having met physical therapy goals, plan is to discharge patient home on postoperative day 1. Discharge condition/disposition: Patient will be discharged home in stable cond ition. Discharge medications: Instructions are given on resumption of patient's normal daily medications per primary care recommendation, in addition patient will be prescribed [facility] 5 mg / 325 mg, senna S, aspirin 325 mg. Discharge instructions: 1. Keep incision covered and dry while showering 2. Utilize sling, okay to take breaks 3. Ice the shoulder for symptomatic relief 4. Pain medication as needed 5. Plan for [facility]up [facility] Procedures: Left total shoulder arthroplasty Patient Condition at Discharge: Good Plan - Discharge Summary Discharge Rx Participant: Yes New Discharge Prescriptions: New Aspirin 325 mg PO DAILY #21 tab HYDROcodone/APAP 5-325MG [[facility] 5-325] 1 tab PO Q6HR PRN #28 tab PRN Reason: Pain Sennosides/Docusate Sodium [Senna-S 8.6-50 mg Tablet] 2 each PO DAILY PRN #30 tablet PRN Reason: Constipation No Action Aspirin 81 mg PO DAILY Meclizine [Antivert] 12.5 mg PO BID Escitalopram [Lexapro] 10 mg PO HS Metoprolol Tartrate [Lopressor] 12.5 mg PO DAILY Atorvastatin [Lipitor] 20 mg PO HS Multivitamins, Thera [Multivitamin (formulary)] 1 tab PO DAILY ALPRAZolam [Xanax] 0.125 - 0.25 mg PO HS PRN PRN Reason: Insomnia Discharge Medication List Aspirin 81 mg PO DAILY 09/01/14 [History] Escitalopram [Lexapro] 10 mg PO HS 12/01/19 [History] Meclizine [Antivert] 12.5 mg PO BID 12/01/19 [History] Metoprolol Tartrate [Lopressor] 12.5 mg PO DAILY 12/01/19 [History] Atorvastatin [Lipitor] 20 mg PO HS 07/03/23 [History] Multivitamins, Thera [Multivitamin (formulary)] 1 tab PO DAILY 07/03/23 [History] ALPRAZolam [Xanax] 0.125 - 0.25 mg PO HS PRN 03/11/24 [History] Aspirin 325 mg PO DAILY #21 tab 03/16/24 [Rx] HYDROcodone/APAP 5-325MG [[facility] 5-325] 1 tab PO Q6HR PRN #28 tab 03/16/24 [Rx] Sennosides/Docusate Sodium [Senna-S 8.6-50 mg Tablet] 2 each PO DAILY PRN #30 tablet 03/16/24 [Rx] Follow up Appointment(s)/Referral(s): Neil James PAC [PHYSICIAN PSYCHOLOGY ASSOCIATE] - 2 Weeks Patient Instructions/Handouts: Shoulder Arthroplasty (GEN) Activity/Diet/Wound Care/Special Instructions: Orthopedic Discharge Instructions: 1. Wound care and infection precautions, keep incision dry and covered while showering, no lotions, creams, moisturizers. No soaking, pools, hot tubs. Do not scrub over incision. 2. Nonweightbearing left upper extremity until follow-up. 3. Ice when necessary. Do not exceed 20 minutes per hour with ice pack. 4. Utilize sling to left upper extremity until seen at first follow up appointment. 5. Pain meds and anticoagulants per prescription. 6. Pain medication has potential to cause constipation. Increase oral fluid and fiber intake. Contact primary care provider if you have not had a bowel movement within 48 hours after discharge. 7. No anti-inflammatory medication until discussed at first post operative visit, this including Motrin, Aleve, Mobic, Diclofenac. 8. Follow up in office at 2 weeks postop with Pedro Tabor PA-C / Neil James PA-C 9. Follow up with your primary care doctor 7-10 days after discharge. 10. Contact [facility] with any questions, . Keep incision clean, dry, intact. While showering, cover dressing with Saran wrap. Keep dressing on until follow-up appointment in office in 2 weeks. Discharge Disposition: HOME WITH HOME HEALTH SERVICES
--- NOTE | 2024-03-16 19:32 | P.CONS ---
History of Present Illness - Reason for Consult Consult date: 03/16/24 Medical management Requesting physician: Ankur Calle - Chief Complaint Left shoulder surgery - History of Present Illness This is a very pleasant 78-year-old patient who follows with Dr. Dr. Carrion. Chronic stable medical conditions include , CK D stage III, IBS, GERD, chronic tinnitus. Also has a loop recorder being worked up with Dr. Mayer for sick sinus syndrome and SVT. Patient yesterday underwent left shoulder surgery. Left arm in a sling. Some pain is present. Tolerated diet. No dizziness no lightheadedness. No palpitations. Did ambulate. Daughter at the bedside is a physical therapist. Review of systems: GEN.: None EYES: None HEENT: Chronic tinnitus NECK: None RESPIRATORY: None CARDIOVASCULAR: None GASTROINTESTINAL: [GERD GENITOURINARY: None MUSCULOSKELETAL: Joint pains LYMPHATICS: None HEMATOLOGICAL: None PSYCHIATRY: None NEUROLOGICAL: None Past medical history to include: Osteoarthritis, CK D stage III, COVID November 2021, IBS, severe tinnitus, loop recorder for sick sinus syndrome/SVT Social history: Lives alone. No smoking. Alcohol rarely. Physical examination: VITAL SIGNS: 98.1, 56, 16, 116 x 66, 93% room air GENERAL: BMI 39.7, sitting at the edge of the bed, comfortable EYES: Pupils equal. Conjunctiva normal. HEENT: External appearance of nose and ears normal, oral cavity grossly normal. NECK: JVD not raised; masses not palpable. HEART: First and second heart sounds are normal; no edema. LUNGS: Respiratory rate normal; clear to auscultation. ABDOMEN: Soft, nontender, liver spleen not palpable, no masses palpable. PSYCH: Alert and oriented x3; mood and affect normal. MUSCULOSKELETAL:No Clubbing/cyanosis;muscles-grossly intact. Evidence of OA. Left arm in a sling. NEUROLOGICAL: Cranial nerves grossly intact; no facial asymmetry, power and sensation grossly intact. LYMPHATICS: No lymph nodes palpable in the axilla and neck INVESTIGATIONS, reviewed in the clinical context: No labs Assessment plan: -Left total shoulder arthroplasty Pain control Left arm in a sling -Primary osteoarthritis Pain control as needed -CK D stage III possibly nephrosclerosis Continue labs available. Follow-up with PCP. -Chronic tinnitus Longstanding problem. Follow-up outpatient. -GERD Prilosec -Essential hypertension Lopressor -Anxiety depression Lexapro, Xanax when necessary Care was discussed with patient daughter at bedside. Questions answered. Patient to go back to taking her baby aspirin after the DVT prophylaxis dose of aspirin is completed. Thank you Dr. Calle Past Medical History Past Medical History: Hearing Disorder / Deafness, Hyperlipidemia, Liver Disease, Osteoarthritis (OA), Renal Disease, Supraventricular Tachycardia (SVT) Additional Past Medical History / Comment(s): Irregular heart beat, low heart rate, occasional IBS, pre-cancer - skin, severe tinnitus, bilateral hearing aid use, fatty liver - no symptoms, stage 3 kidney disease. History of Any Multi-Drug Resistant Organisms: None Reported Past Surgical History: Breast Surgery, Cholecystectomy, Hysterectomy, Joint Replacement, Tonsillectomy Additional Past Surgical History / Comment(s): Total right knee arthroplasty, total right shoulder replacement, breast biopsy, loop recorder implant. Past Anesthesia/Blood Transfusion Reactions: No Reported Reaction, Motion Sickness Additional Past Anesthesia/Blood Transfusion Reaction / Comm: No hx blood transfusion. Patient requests medication for nausea day of surgery please. Past Psychological History: No Psychological Hx Reported Additional Psychological History / Comment(s): Pt resides alone. No device. Smoking Status: Never smoker Past Alcohol Use History: None Reported Past Drug Use History: None Reported - Past Family History Mother Family Medical History: Cancer Additional Family Medical History / Comment(s): Colon cancer. Medications and Allergies Home Medications Medication Instructions Recorded Confirmed Type Aspirin 81 mg PO DAILY 09/01/14 03/15/24 History Escitalopram [Lexapro] 10 mg PO HS 12/01/19 03/15/24 History Meclizine [Antivert] 12.5 mg PO BID 12/01/19 03/15/24 History Metoprolol Tartrate [Lopressor] 12.5 mg PO DAILY 12/01/19 03/15/24 History Atorvastatin [Lipitor] 20 mg PO HS 07/03/23 03/15/24 History Multivitamins, Thera [Multivitamin 1 tab PO DAILY 07/03/23 03/15/24 History (formulary)] ALPRAZolam [Xanax] 0.125 - 0.25 mg PO HS PRN 03/11/24 03/15/24 History Aspirin 325 mg PO DAILY #21 tab 03/16/24 Rx HYDROcodone/APAP 5-325MG [[place] 1 tab PO Q6HR PRN #28 tab 03/16/24 Rx 5-325] Sennosides/Docusate Sodium 2 each PO DAILY PRN #30 tablet 03/16/24 Rx [Senna-S 8.6-50 mg Tablet] Allergies Allergy/AdvReac Type Severity Reaction Status Date / Time Penicillins Allergy Rash/Hives-not Verified 03/15/24 06:21 sure if it was penicillin egg AdvReac Unknown Diarrhea, Verified 03/15/24 06:21 Abd Pain Physical Exam Vitals: Vital Signs Temp Pulse Resp BP Pulse Ox 03/16/24 06:40 98.1 F 56 L 16 116/66 93 L 03/16/24 02:18 97.8 F 53 L 17 120/66 93 L Intake and Output 03/16/24 03/16/24 03/16/24 06:59 14:59 22:59 Intake Total 200 Balance 200 Intake: Oral 200 Other: # Voids 5
== END 2024-03-16 13:19 | disposition home health service (06) ==
LOC: OR 05:45 → 4SSUR 09:25 → OR 03-16 13:19
PROVIDERS: ATTEND Orthopaedic Surgery
DX: M19.012 Primary osteoarthritis, left shoulder (principal); E78.5 Hyperlipidemia, unspecified; K58.9 Irritable bowel syndrome, unspecified; H93.19 Tinnitus, unspecified ear; Z90.49 Acquired absence of other specified parts of digestive tract; Z90.710 Acquired absence of both cervix and uterus; Z96.651 Presence of right artificial knee joint; Z80.0 Family history of malignant neoplasm of digestive organs; Z88.0 Allergy status to penicillin; Z79.02 Long term (current) use of antithrombotics/antiplatelets; Z79.82 Long term (current) use of aspirin; Z79.899 Other long term (current) drug therapy
CPT/HCPCS: 64415; 73020; 23472; C1713; C1776; J2250; J1100; J0690 ×2; J2405; J1171